=== PATIENT | female | born 1990 | race Two or more races ===

== ENCOUNTER 2021-05-13 00:20 | Emergency (ER) | payer OTHER ==
[~2021-05-13] VITALS: Ht 149.9 cm; Wt 49.4 kg
[2021-05-13] MEDS ORDERED: MEDROLPACK PO (03:50)
[2021-05-13] MEDS ORDERED: BENADRYL50 MG PO (03:50)
[2021-05-13] MEDS ORDERED: AZITHROMYCIN500 MG PO (03:50)
== END 2021-05-13 03:56 | disposition home or self-care (01) ==
LOC: ER 00:20
DX: J02.9 Acute pharyngitis, unspecified (principal); R21 Rash and other nonspecific skin eruption; Z20.822 Contact with and (suspected) exposure to COVID-19